=== PATIENT | male | born 1960 | race Caucasian/White ===

== ENCOUNTER 2021-03-13 18:11 | Inpatient (IN) | payer MEDICARE, MEDICAID, SELFPAY ==
[2021-03-13] VITALS (10 sets, daily range): BP systolic 117–151; BP diastolic 72–84; PULSE 74–97; RESP 16–22; TEMP 36.1–36.8; O2SAT 90–99; BMI 23.6
--- NOTE | ~2021-03-13 | XR_ITS ---
XR chest 2V DATE: 03/13/2021 18:46 INDICATION: Shortness of breath. Midsternal chest pain. History of COPD and myocardial infarction. TECHNIQUE: AP and lateral views COMPARISON: None FINDINGS: Bilateral hyperinflation consistent with COPD. No pulmonary infiltrate or consolidation, pu lmonary vascular congestion or pneumothorax is evident. Pleural calcification, suggesting prior asbestos exposure. Diffuse osteopenia. There is moderate anterior wedging and loss of height of a mid to lower thoracic vertebral body. IMPRESSION: COPD Pleural calcifications suggesting prior asbestos exposure Reviewed, dictated and finalized at location A.
--- NOTE | 2021-03-13 18:23 | ECG_ITS ---
Measurements Intervals [place] Rate: 95 P: 64 AK: 138 QRS: 57 QRSD: 104 T: 70 QT: 382 QTc: 480 Interpretive Statements SINUS RHYTHM NORMAL ECG Electronically Signed On 03-13-2021 20:44:26 CDT by Aung Chin D.O.
[2021-03-13 18:48] LABS: Basophils Absolute Auto 0.1 K/mm3 (0.0-0.1); Basophils Percent Auto 0.4 % (0.2-1.2); Eosinophils Absolute Auto 0.1 K/mm3 (0-0.3); Eosinophils Percent Auto 0.4 % (0-4.4); Hematocrit 36.8 % (42.0-52.0); Hemoglobin 11.7 g/dL (14.0-18.0); Immature Granulocyte Absolute 0.14 K/mm3 (0.00-0.031); Lymphocytes Absolute Auto 1.42 K/mm3 (0.9-3.2); Lymphocytes Percent Auto 10.6 % (18.3-44.2); Mean Corpuscular HGB Conc 31.8 g/dl (32-36); Mean Corpuscular Hemoglobin 31.5 pg (26-34); Mean Corpuscular Volume 98.9 fl (80-100); Mean Platelet Volume 8.9 fl (7.4-10.4); Monocytes Absolute Auto 0.6 K/mm3 (0.1-0.6); Monocytes Percent Auto 4.3 % (2.6-8.5); Neutrophils Absolute Auto 11.1 K/mm3 (1.3-6.7); Neutrophils Percent Auto 83.3 % (45.5-73.1); Platelet Count Result 384 k/mm3 (150-375); Red Blood Count 3.72 M/mm3 (4.6-6.20); Red Cell Distribution Width 17.5 % (11.5-14.5); White Blood Count 13.4 K/mm3 (4.5-10.0)
[2021-03-13 19:00] LABS: INR 0.9; Prothrombin Time 11.8 Seconds (11.1-14.7)
[2021-03-13 19:01] LABS: Anion Gap 15 mmol/L (8-16); Blood Urea Nitrogen 17 mg/dL (9-20); Carbon Dioxide 20 mmol/L (22-30); Chloride 103 mmol/L (98-107); Estimated CRCL calculation 81 ml/min; Estimated Glomerular Filt Rate > 60; Glucose 115 mg/dL (65-110); Partial Thromboplastin Time 25.7 SECONDS (22.3-36.8); Potassium 3.7 mmol/L (3.4-5.0); Sodium 138 mmol/L (137-145)
[2021-03-13 19:09] LABS: NT Pro B Type Natriuretic Pept 97 pg/mL (5-100)
[2021-03-13 19:21] LABS: Troponin I 0.373 ng/mL (0.000-0.034)
--- NOTE | 2021-03-13 19:24 | PC.NURSE ---
Checked on pt. pt resting with easy, even, nonlabored resps. currently on 2L O2 per NC. When awoken by this RN and asked how he was doing, pt stated Terrible, I can't breathe. Pt appears to be in no acute distress. Remains on monitor. call light in reach.
--- NOTE | 2021-03-13 20:40 | PM.IMHP ---
H&P: HPI History of Present Illness Date/Time: 03/13/21 20:40 Chief Complaint: CHEST PAIN. Narrative: THIS IS A 60-YEAR-OLD MALE WITH PAST MEDICAL HISTORY SIGNIFICANT FOR COPD/EMPHYSEMA WHO IS A CURRENT DAILY SMOKER OF 1 PACK OF CIGARETTES HE IS FROM [place] AND IS IN TRANSIT THROUGH TOWN IN HIS TRUCK PULLED TO THE SIDE OF THE ROAD ON A REST AREA AND CALLED EMS AND WAS BROUGHT TO THE EMERGENCY ROOM DUE TO ACUTE CHEST PAIN STATES THAT HE HAD A SIMILAR EPISODE THAT REQUIRED STAY AT HOSPITAL IN [place] HAD CARDIAC CATHETERIZATION BUT NO STENT PLACED. RATES HIS PAIN AT 8/10 RADIATING TO THE SHOULDER AND ARM ON THE LEFT SIDE PATIENT WAS DRIVING AT THE TIME THIS HAPPENED HAD INVOLUNTARY SPHINCTER RELAXATION WELL. DENIES ANY NAUSEA OR VOMITING NO DIAPHORESIS, LIGHTHEADEDNESS ,DIZZINESS, LEG SWELLING, FEVERS, RIGORS OR CHILLS. HE HAS A CHRONIC COUGH PRODUCTIVE OF SCANTY SPUTUM OF YELLOWISH TO GREENISH WITH NO CHANGES LATELY. PRELIMINARY WORKUP WAS SIGNIFICANT FOR SLIGHT ELEVATION OF TROPONINS AN EKG WAS NOT SIGNIFICANT FOR ST SEGMENT OR T WAVE CHANGES. A CHEST X-RAY SHOW CALCIFICATIONS FROM ON PRESUMABLY ASBESTOS EXPOSURE. PATIENT HAS BEEN PLACED IN OBSERVATION STATUS. Review of Systems Review of Systems: CHEST PAIN Constitutional: Constitutional: Denies chills, Denies fatigue, Denies fever(s) and Denies weakness Eyes: Eyes: Denies change in vision ENT: Denies dysphagia, Denies vertigo, Denies dizziness, Denies nasal congestion, Denies nasal discharge, Denies nasal obstruction and Denies odynophagia Cardiovascular: Cardiovascular: Reports chest pain, Reports chest pain at rest, Denies lightheadedness, Reports radiating jaw, neck or arm pain, Denies palpitations, Denies dyspnea and Denies orthopnea Respiratory: Respiratory: Denies change in phlegm color, Reports cough and Denies excessive phlegm production Gastrointestinal: Gastrointestinal: Denies constipation, Denies dyspepsia, Denies diarrhea, Denies nausea and Denies vomiting Genitourinary: Genitourinary: Reports no additional male genitourinary complaints Musculoskeletal: Musculoskeletal: Reports no additional musculoskeletal complaints Integumentary/Breasts: Skin/Breast: Reports system reviewed and no additional complaints, except as docu Neurologic: Reports system reviewed and no additional complaints, except as documented Psychiatric: Psychiatric: Reports no additional psychiatric complaints Endocrine: Endocrine: Reports no additional endocrine complaints Hematologic/Lymphatic: Hematologic/Lymphatic: Reports no additional hematologic/lymphatic complaints Allergic/Immunologic: Allergic/Immunologic: Reports no additional allergic/immunologic complaints [facility] Social History Social History Gender identity (if verbalized by the patient): Male Meds Home Medications and Allergies Allergies Allergy/AdvReac Type Severity Reaction Status Date / Time No Known Allergies Allergy Verified 03/13/21 18:25 Vital Signs Vital Signs - 24 hr 03/13/21 18:12 03/13/21 18:25 03/13/21 18:53 Temperature 98.2 F Pulse Rate 97 93 Respiratory Rate 22 H 20 Blood Pressure 123/79 124/80 Pulse Oximetry 90 94 96 03/13/21 19:26 03/13/21 19:32 Temperature 97.0 F L Pulse Rate 95 94 Respiratory Rate 20 Blood Pressure 119/83 Pulse Oximetry 96 Exam Narrative: LAYING IN RNEY Const: General: cooperative, comfortable, no acute distress, well developed, alert, awake and other (WELL-APPEARING) Nutritional Appearance: average body habitus Orientation/consciousness: patient oriented x3 HENMT: Head: normal to inspection, normocephalic and atraumatic Ears: hearing grossly normal bilaterally General nose exam: Normal external nose present Face and sinus: normal facial exam Eyes: General: appearance normal, both eyes and all related structures Alignment and Position: alignment normal Sclera: sclerae normal Pupils: Equal, round and reactive pupils present
--- NOTE | 2021-03-13 21:21 | ED.SOB ---
HPI - SOB/Dyspnea General Chief Complaint: Shortness of Breath/Dyspnea Stated Complaint: 4 Time Seen by Provider: 03/13/21 18:39 Source: patient Mode of arrival: EMS Limitations: no limitations History of Present Illness HPI Narrative: 60-year-old male History of coronary artery disease Patient is from [place] and was traveling through the area in his truck He said yesterday he had some relatively mild substernal chest discomfort But tonight he abruptly had much more severe sharp or substernal pain which was accompanied by shortness of breath and some diaphoresis and was significant enough that it may have contributed to some fecal incontinence EMS gave aspirin and oxygen and he is feeling better now He notes that he does continue to smoke, and is not taking any aspirin blood pressure medication or cholesterol medication although he used to He also has a history of COPD Related Data Allergies Allergy/AdvReac Type Severity Reaction Status Date / Time No Known Allergies Allergy Verified 03/13/21 18:25 Review of Systems Review of Systems: All systems reviewed & are unremarkable except as noted in HPI and below Constitutional: Constitutional: Reports no additional constitutional complaints, Denies chills, Reports fatigue, Denies fever(s), Denies headache(s) and Reports weakness Eyes: Eyes: Reports no additional eye complaints and Denies change in vision ENT: Denies headache(s) and Denies sore throat Cardiovascular: Cardiovascular: Reports chest pain and Denies dyspnea Respiratory: Respiratory: Reports chest congestion, Reports cough, Reports dyspnea and Reports wheezing Gastrointestinal: Gastrointestinal: Denies abdominal pain, Denies diarrhea and Denies vomiting Genitourinary: Genitourinary: Denies dysuria and Denies urinary frequency Musculoskeletal: Musculoskeletal: Denies deformity, Denies arthralgias, Denies joint swelling and Denies numbness Integumentary/Breasts: Skin/Breast: Denies rash and Denies wounds Neurologic: Denies headache(s), Denies focal weakness and Denies numbness Psychiatric: Psychiatric: Reports no additional psychiatric complaints Endocrine: Endocrine: Reports no additional endocrine complaints Hematologic/Lymphatic: Hematologic/Lymphatic: Reports no additional hematologic/lymphatic complaints Allergic/Immunologic: Allergic/Immunologic: Reports no additional allergic/immunologic complaints PMFSH Social History Social History Gender identity (if verbalized by the patient): Male Exam Const: General: cooperative and no acute distress Orientation/consciousness: patient oriented x3 (alert) HENMT: Head: normal to inspection, normocephalic and atraumatic Ears: external ears normal General nose exam: no epistaxis Eyes: Conjunctivae: conjunctivae normal EOM: EOMs intact bilaterally Neck: Neck: normal visual inspection, supple and no JVD Resp: Effort & Inspection: normal respiratory effort and not labored Auscultation: no rales, rhonchi, wheezes and other (BS =) Cardio: Rate: regular rate Rhythm: regular rhythm Heart sounds: no murmurs GI: GI Palp: Yes Soft to palpation and No Tenderness to palpation present (GI) Skin: General skin exam: normal color and no rashes or lesions noted Neuro: General: patient oriented x3 (alert) and moves all extremities Speech: normal speech Extrem: General: normal to inspection and no pedal edema Psych: Affect: normal affect Course Course Emergency Course: Patient is high risk because of his known coronary disease and not taking any meds, history is suggestive, EKG is normal, initial troponin is 10 times upper bound of normal, received aspirin Lovenox and discussed with Dr. Vazquez and Dr. Campos for admissions Vital Signs Vital signs: Vital Signs Temperature 36.8 C 03/13/21 18:12 Pulse Rate 97 03/13/21 18:12 Respiratory Rate 22 H 03/13/21 18:12 Blood Pressure 123/79 03/13/21 18:12 Pulse Oximetry 90 03/13
[2021-03-13] MEDS: NITROGLYCERIN OINTMENT 1 INCH DOSE TRANSDERM (21:46)
[2021-03-13] MEDS: ENOXAPARIN 80 MG/0.8 ML SYRINGE SUB-Q (21:47)
[2021-03-13 22:16] LABS: Troponin I 0.436 ng/mL (0.000-0.034)
[2021-03-13] MEDS: IPRATROPIUM BR 0.02% INH SOLN 0.5 MG/2.5 ML VIAL INHALATION (22:34)
[2021-03-13] MEDS: ALBUTEROL SULFATE NEB 2.5 MG/0.5 ML INH 5 MG INHALATION (22:34)
[2021-03-13] MEDS: MORPHINE SULFATE (*CRX) 2 MG/ML INJ 1 MG IV PUSH (22:58)
--- NOTE | 2021-03-13 23:19 | PC.NURSE ---
Pt given dose of IVP morphine prior to transport to room 205.
--- NOTE | 2021-03-13 23:29 | PC.NURSE ---
This patient, David Madera, was admitted to IMU Room 205-01. Patient/family oriented to hospital policies and general routines including ID bracelet, bed and alarms, visiting hours, pain management, procedures, bathroom and other care routines, personal items, smoking policy, room service/diet, and visiting hours. Information on how to activate the Rapid Response Team has been discussed. Patient/Family are encouraged to report perceived risks to care and to ask questions if they do not understand what they are told or what they should do.
[2021-03-13] MEDS: NITROGLYCERIN SL 0.4 MG TABLET SUBLINGUAL ×3 (23:45→23:56)
[2021-03-14] VITALS (22 sets, daily range): BP systolic 130–154; BP diastolic 70–90; PULSE 75–106; RESP 14–24; TEMP 36.3–37.1; O2SAT 92–99
--- NOTE | 2021-03-14 | ECHO_ITS ---
Patient Info Name: David Madera Age: 60 years : 1960 Gender: Male Ht: 71 in Wt: 168 lbs BSA: 1.96 m2 HR: 92 bpm BP: 140 / 77 mmHg Technical Quality: Fair Exam Date: 03/14/2021 1:27 PM Exam Location: [facility] Patient Status: Inpatient Admit Date: 03/13/2021 Staff Ordering Physician: Blane Schroeder MD Eeg Technologist: Nicole Roy RDCS Attending Provider: Lou Vazquez MD Exam Type: CA echo dop color flow w con Study Info Complete two-dimensional, color flow and Doppler transthoracic echocardiogram is performed with contrast to opacify the left ventricle and to improve the deliniation of the left ventricle endocardial borders. Contrast/Agitated Saline Contrast/Ag. Saline: Definity Amount: 4.00 ml Summary 1. Left ventricular chamber dimension is normal. 2. Left ventricular systolic function is normal, estimated at 55-60%. 3. The left ventricular diastolic function is normal. 4. Normal left venticular systolic function with no regional wall motion abnormalities. 5. There is mildly increased left ventricular wall thickness. 6. The mitral valve has myxomatous leaflets and anterior prolapse. 7. There is moderate mitral valve regurgitation. Left Ventricle Left ventricular chamber dimension is normal. Left ventricular systolic function is normal, estimated at 55-60%. There is mildly increased left ventricular wall thickness. The left ventricular diastolic function is normal. Normal left venticular systolic function with no regional wall motion abnormalities. Right Ventricle Right ventricular chamber dimension is normal. Right ventricular systolic function is normal. Left Atria Left atrial chamber dimension is mildly enlarged. Right Atria Right atrial chamber dimension is normal. Aortic Valve The aortic valve is trileaflet. There is no aortic valve sclerosis. There is no aortic valve stenosis. There is no aortic valve regurgitation. Pulmonic Valve The pulmonic valve is normal. There is no pulmonic valve stenosis. There is no pulmonic regurgitation. Mitral Valve The mitral valve has anterior prolapse and myxomatous leaflets. There is no mitral valve stenosis. There is moderate mitral valve regurgitation. Tricuspid Valve The tricuspid valve leaflets are normal. There is no significant tricuspid valve stenosis. There is trace tricuspid valve regurgitation. Pericardium/Pleural The pericardium appears normal. There is no pericardial effusion. Inferior Vena Cava Normal inferior vena cava with >50% collapse upon inspiration consistent with normal right atrial pressure, 5 mmHg. Aorta The aortic root size at the sinus of Valsalva is normal. The prox ascending aorta size is normal. Left Ventricular Outflow Tract Name Value Normal LVOT 2D LVOT Diameter 2.46 cm LVOT Doppler LVOT Peak Gradient 3 mmHg LVOT Mean Gradient 1 mmHg LVOT VTI 18.91 cm LVOT VTI/AV VTI Ratio 0.63 LVOT Stroke Volume
[2021-03-14] MEDS: MORPHINE SULFATE (*CRX) 2 MG/ML INJ 1 MG IV PUSH (00:25)
--- NOTE | 2021-03-14 01:14 | ECG_ITS ---
Measurements Intervals [place] Rate: 90 P: 68 AL: 137 QRS: 58 QRSD: 107 T: 72 QT: 394 QTc: 484 Interpretive Statements SINUS RHYTHM ATRIAL PREMATURE COMPLEXES BASELINE ARTIFACT- II, III, AVR, AVL, AVF BORDERLINE ECG Electronically Signed On 03-14-2021 10:08:15 CDT by Aung Chin D.O.
--- NOTE | 2021-03-14 01:15 | PCDIET ---
This patient, David Madera, was received from [facility]- on 03/14/21 at 0115. REPORT RECEIVED FROM VELASQUEZ PATIÑO. Patient/family oriented to unit policies and routines
[2021-03-14 01:24] LABS: Troponin I 0.382 ng/mL (0.000-0.034)
[2021-03-14] MEDS: NITROGLYCERIN/D5W 200 MCG/ML 50 MG/250 ML BTL IV CONT (02:05)
--- NOTE | 2021-03-14 02:23 | PCRCNOTE ---
Window of time for administration has passed. See next scheduled administration.
--- NOTE | 2021-03-14 02:25 | PC.NURSE ---
I received this patient from the ER having 8/10 chest pain. NTG SL X 3 given per protocol with only minor alleviation of pain. Dr Campos notified. Orders for additional 1mg of Morphine and call Dr. Vazquez to transfer the patient to the ICU for a Ntg drip. Spoke with Dr Vazquez and she agreed to call Dr Cardenas to transfer the patient. After the additional Morphine, chest pain is still 7/10 with radiation to the rt arm and jaw with associated nausea and diaphoresis. Patient transferred to ICU-4, report given to Josette PATIÑO.
[2021-03-14] MEDS: ALBUTEROL SULFATE NEB 2.5 MG/0.5 ML INH 5 MG INHALATION ×4 (02:43→21:06)
[2021-03-14] MEDS: IPRATROPIUM BR 0.02% INH SOLN 0.5 MG/2.5 ML VIAL INHALATION ×4 (02:43→21:06)
[2021-03-14] MEDS: LACTATED RINGERS 1,000 ML 100 ML IV CONT (03:12)
[2021-03-14] MEDS: LORazepam INJ (*CRX) 2 MG/ML VIAL 1 MG IV PUSH ×2 (03:13→20:59)
[2021-03-14] MEDS: chlordiazePOXIDE (*CRX) 25 MG CAPSULE 50 MG PO ×3 (03:13→17:06)
[2021-03-14 07:53] LABS: Troponin I 0.268 ng/mL (0.000-0.034)
--- NOTE | 2021-03-14 09:50 | WPDCNINT ---
Assessment and Plan Assessment and plan (1) Non-ST elevation AR (NSTEMI): Code(s): I21.4 - Non-ST elevation (NSTEMI) myocardial infarction Status: Acute Assessment and Plan: Patient with chest pain, shortness of breath, diaphoresis, -no ST-T changes on EKG -troponins elevated with have plateaued and decreased -currently chest pain-free -patient on nitroglycerin infusion, will switch to nitro paste - Cardiology evaluate the patient, plan for cardiac catheterization on Tuesday10/11/2020 -will order echocardiogram -discussed with Cardiology, will discontinue nitroglycerin infusion and place patient on nitro patch (2) Tobacco dependence: Code(s): F17.200 - Nicotine dependence, unspecified, uncomplicated Status: Acute Assessment and Plan: Patient states he smokes 1 to 1/2 packet per day for about 45 years. -control patient on cessation of smoking, patient says he has has not thought about it as yet -I did discuss with him the affects of cigarette smoking on the heart especially that he has come in with chest pain and NSTEMI. I also discussed with him regarding COPD which could worsen if he continues to smoke, He said he will think about quitting (3) Emphysema/COPD: Code(s): J43.9 - Emphysema, unspecified Status: Acute Assessment and Plan: History of emphysema/COPD as seen on chest x-ray as well as from his history -continue bronchodilators (4) Alcohol use: Code(s): Z72.89 - Other problems related to lifestyle Status: Acute Assessment and Plan: Patient states he has drinks about half a pintt of whiskey daily -counseled patient on cessation of alcohol use and getting him to AA or other groups Additional Plan Discussed with patient updated with his condition and plan of care. He states he is hungry, I did discuss with him that once Cardiology evaluates him he will be able to eat. Code status: Full code Critical care time spent: 39 minutes This dictation may have been done utilizing a voice recognition system. Attempts have been made to correct errors. However, there may be uncorrected grammatical, spelling, and recognition errors present. Due to a high probability of clinically significant, life threatening deterioration, the patient required my highest level of preparedness to intervene emergently and I personally spent this critical care time directly and personally managing the patient. This critical care time included obtaining a history; examining the patient; pulse oximetry; ordering and review of studies; arranging urgent treatment with development of a management plan; evaluation of patient's response to treatment; frequent reassessment; and discussions with other providers. It was exclusive of separately billable procedures and treating other patients and teaching time. 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 EKG did not show any ST-T changes, troponins mildly elevated and trending down. Patient was given morphine and sublingual nitroglycerin, chest pain remained 8/10 in intensity and patient was started on nitroglycerin infusion and transferred to the ICU for further management. Patient seen and examined this morning, remains on nitroglycerin infusion, states his chest pain has almost resolved, which he smokes 1 to 1/2 packet of cigarettes per day and drinks about half a pint of whiskey daily. Patient denies any illicit drug use. At this time he does not complain of
--- NOTE | 2021-03-14 10:59 | PM.CNCAR ---
Assessment and Plan Additional Plan NSTEMI, moderate to sever MR per examination, HTN, Plan Cont LMWH, TTE to assess MV disease, ASA, statin, change nitroglycerin to oral therapy Imdur 60 mg daily, start metoprolol 25 mg BID. I discussed withpatient need for LHC but he refused. He wanted more time to think about it. History of Present Illness History of Present Illness Consult date/time: 03/14/21 10:59 Reason For Visit: NSTEMI Narrative: Patient presented with acute chest pain that started yesterday, acute sever retrosternal, pressure like, non radiating, associated with SOB. Today his pain has resolved and SOB improved. He had similar episode several months ago and admitted to hospital [place] and was discharged with no intervention. Review of Systems Review of Systems: All systems reviewed & are unremarkable except as noted in HPI and below PMFSH Social History Social History Smoking packs per day: 1 Smoking cigarettes per day: 20.0 Years smoked: 45 Smoking pack-years: 45.00 Smoking status: Heavy tobacco smoker Tobacco type: cigarettes Alcohol intake: current Drinks per week: 5 Substance use: never Gender identity (if verbalized by the patient): Male Spiritual care concerns: No Meds Home Medications and Allergies Home Medications Medication Instructions Recorded Confirmed Type trazodone 100 mg PO HS PRN 03/13/21 03/14/21 History Allergies Allergy/AdvReac Type Severity Reaction Status Date / Time Penicillins Allergy Unknown Swelling Verified 03/13/21 22:57 Vital Signs Vital Signs - 24 hr 03/13/21 18:12 03/13/21 18:25 03/13/21 18:53 Temperature 36.8 C Pulse Rate 97 93 Respiratory Rate 22 H 20 Blood Pressure 123/79 124/80 Pulse Oximetry 90 94 96 03/13/21 19:26 03/13/21 19:32 03/13/21 21:38 Temperature 36.1 C L Pulse Rate 95 94 97 Respiratory Rate 20 20 Blood Pressure 119/83 117/72 Pulse Oximetry 96 95 03/13/21 22:36 03/13/21 22:39 03/13/21 22:41 Temperature 36.3 C L Pulse Rate 74 88 Respiratory Rate 16 16 20 Blood Pressure 138/84 Pulse Oximetry 99 99 03/13/21 23:24 03/14/21 00:00 03/14/21 02:00 Temperature 36.4 C L 37.0 C 37.0 C Pulse Rate 95 95 95 Respiratory Rate 22 H 24 H Blood Pressure 151/82 H 143/90 H 147/88 H Pulse Oximetry 99 99 94 03/14/21 02:43 03/14/21 02:52 03/14/21 04:00 Temperature Pulse Rate 92 86 83 Respiratory Rate 20 20 16 Blood Pressure 142/70 H Pulse Oximetry 94 03/14/21 06:00 03/14/21 06:47 03/14/21 06:51 Temperature Pulse Rate 83 95 83 Respiratory Rate 20 Blood Pressure 154/77 H Pulse Oximetry 96 03/14/21 07:57 03/14/21 08:00 03/14/21 08:08 Temperature Pulse Rate 78 80 75 Respiratory Rate 20 22 H Blood Pressure Pulse Oximetry 94 94 Exam Const: General: comfortable and no acute distress Other: Able to lie flat HENMT: General nose exam: Normal nares present and no epistaxis Mouth: Yes moist mucous membranes Eyes: Sclera: sclerae normal Pupils: Equal, round and reactive pupils present Neck: Neck: supple and no JVD Carotids: no bruits Resp: Auscultation: clear to auscultation bilaterally and lung sounds not diminished Other: No chest wall tenderness Cardio: Rate: regular rate Rhythm: regular rhythm Heart sounds: no gallops, Murmur heart sound present (at M area) systolic and no rubs GI: GI Palp: Yes Soft to palpation and No Tenderness to palpation present (GI) Auscultation: normal bowel sounds Skin: General skin exam: normal color, rashes and/or lesions noted and no erythema Other: Warm Neuro: Cranial nerves: Yes Equal, round and reactive pupils present Speech: normal speech Other: No obvious focal deficit or facial asymmetry Extrem: General: no edema Other: Normal capillary refills Intact distal pulses. Results Labs and Meds Result diagrams: 03/13/21 18:37 03/13/21 18:37 Lab results: Cardiac Enzymes
[2021-03-14] MEDS: ASPIRIN 81 MG CHEWABLE TABLET PO (11:18)
[2021-03-14] MEDS: FAMOTIDINE 20 MG/2 ML VIAL IV PUSH ×2 (11:18→20:53)
[2021-03-14] MEDS: ENOXAPARIN 80 MG/0.8 ML SYRINGE SUB-Q ×2 (11:19→20:53)
[2021-03-14] MEDS: ISOSORBIDE MONONITRATE 60 MG TAB.ER.24H PO (11:40)
[2021-03-14] MEDS: NICOTINE (*PBKC) 14 MG PATCH 1 PATCH TRANSDERM (13:12)
[2021-03-14 15:35] LABS: Amphetamine Screen Urine Negative (Negative); Barbiturate Screen Urine Negative (Negative); Benzodiazepines Screen Urine Positive (Negative); Cannabinoid Screen Urine Negative (Negative); Cocaine Screen Urine Negative (Negative); Methadone Screen Urine Negative (Negative); Opiate Screen Urine Positive (Negative); Phencyclidine Screen Urine Negative (Negative)
[2021-03-15] VITALS (24 sets, daily range): BP systolic 103–143; BP diastolic 62–79; PULSE 74–109; RESP 14–24; TEMP 36.3–37; O2SAT 92–99
[2021-03-15] MEDS: chlordiazePOXIDE (*CRX) 25 MG CAPSULE 50 MG PO ×4 (01:30→23:10)
[2021-03-15] MEDS: IPRATROPIUM BR 0.02% INH SOLN 0.5 MG/2.5 ML VIAL INHALATION ×4 (02:59→23:29)
[2021-03-15] MEDS: ALBUTEROL SULFATE NEB 2.5 MG/0.5 ML INH 5 MG INHALATION ×4 (02:59→23:29)
--- NOTE | 2021-03-15 07:30 | PM.IMPN ---
Progress Note: A&P Assessment and Plan (1) Non-ST elevation [place] (NSTEMI): Code(s): I21.4 - Non-ST elevation (NSTEMI) myocardial infarction Status: Acute Assessment and Plan: Patient with chest pain, shortness of breath, diaphoresis. -no ST-T changes on EKG -troponins elevated with have plateaued and decreased now. -currently chest pain-free -he was requiring nitroglycerin infusion which has been stopped now and currently on nitro patch. Continue aspirin and therapeutic Lovenox. I will add Lipitor. He is not on any beta acacia at this time. - Cardiology recommendations appreciated. He is planned for left heart cardiac catheterization and SMILEY to evaluate mitral valve. He had echocardiogram done which showed moderate mitral valve regurgitation with myxomatous leaflet and anterior prolapse. Ejection fraction was 55-60%. (2) Tobacco dependence: Code(s): F17.200 - Nicotine dependence, unspecified, uncomplicated Status: Acute Assessment and Plan: Patient states he smokes 1 to 1/2 packet per day for about 45 years. He was counseled about quitting smoking. (3) Emphysema/COPD: Code(s): J43.9 - Emphysema, unspecified Status: Acute Assessment and Plan: History of emphysema/COPD as seen on chest x-ray as well as from his history. Currently not wheezing. -continue bronchodilators (4) Alcohol use: Code(s): Z72.89 - Other problems related to lifestyle Status: Acute Assessment and Plan: Patient states he has drinks about half a pintt of whiskey daily -counseled patient on cessation of alcohol use and getting him to AA or other groups. Follow for any withdrawal sign and put him on CIWA protocol if he does exhibit any withdrawal signs. He is currently on Librium but will wean the dose to 25 mg every 6 are today. Continue further wean based on his clinical status. Thiamine and folate. Additional Plan DVT prophylaxis with therapeutic Lovenox GI prophylaxis not indicated. He will be NPO overnight for his cardiac catheterization and smiley. Code status: Full code Subjective Date/time seen: 03/15/21 07:30 He denied have any further chest pain. He denied have any shortness of breath fever and chills. He is scheduled to have left heart catheterization and SMILEY in the a.m.. He was on room air at the time my evaluation. Review of Systems Review of Systems: A comprehensive review of systems has been reviewed with the patient and most of the symptoms are negative except the one's mentioned above in HPI. 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 Psychiatric cooperative appropriate mood and affect Extremities no edema Objective Data Vital Signs Vital Signs: Vital Signs - 24 hr 03/14/21 07:57 03/14/21 08:00 03/14/21 08:08 Temperature 36.3 C L Pulse Rate 78 89 75 Respiratory Rate 20 22 H 22 H Blood Pressure 147/84 H Pulse Oximetry 94 93 94 03/14/21 10:00 03/14/21 12:00 03/14/21 14:00 Temperature 36.6 C Pulse Rate 100 96 83 Respiratory Rate 22 H 24 H 22 H Blood Pressure 146/88 H 140/77 132/86 Pulse Oximetry 96 99 99 03/14/21 14:25 03/14/21 14:34 03/14/21 16:00 Temperature Pulse Rate 87 84 89 Respiratory Rate 20 20 22 H Blood Pressure 142/82 H Pulse Oximetry 97 97 99 03/14/21 18:00 03/14/21 20:00 03/14/21 21:06 Temperature 37.1 C Pulse Rate 94 83 82 Respiratory Rate 24 H 14 Blood Pressure 130/84 Pulse Oximetry 95 03/14/21 21:20 03/14/21 22:00 03/15/21 00:00 Temperature Pulse Rate 84 82 81 Respiratory Rate 16 Blood Pressure Pulse Oximetry 99 03/15/21 00:45 03/15/21 02:00 03/15/21 02:59 Temperature 37.0 C Pulse Rate 82 86 87 Respiratory Rate 24 H 14 Blood Pressure 103/64 Pulse Oximetry 9
[2021-03-15] MEDS: ASPIRIN 81 MG CHEWABLE TABLET PO (08:33)
[2021-03-15] MEDS: FAMOTIDINE 20 MG/2 ML VIAL IV PUSH (08:33)
[2021-03-15] MEDS: ENOXAPARIN 80 MG/0.8 ML SYRINGE SUB-Q ×2 (08:33→20:01)
[2021-03-15] MEDS: ISOSORBIDE MONONITRATE 60 MG TAB.ER.24H PO (08:34)
[2021-03-15] MEDS: NICOTINE (*PBKC) 14 MG PATCH 1 PATCH TRANSDERM (08:34)
--- NOTE | 2021-03-15 08:37 | PM.PNCARD ---
Progress Note: A&P Additional Plan NSTEMI, moderate to sever MR per examination, HTN, Plan Cont LMWH, ROSA and LHC (ROSA first to evaluate severity of MR) in AM, ASA, statin, Imdur 60 mg daily, metoprolol 25 mg BID. Subjective Date/time seen: 03/15/21 08:37 Interval history: no acute events no chest pain or SOB Review of Systems Review of Systems: All systems reviewed & are unremarkable except as noted in HPI and below Exam Const: General: comfortable and no acute distress Other: Able to lie flat HENMT: General nose exam: Normal nares present and no epistaxis Mouth: Yes moist mucous membranes Eyes: Sclera: sclerae normal Pupils: Equal, round and reactive pupils present Neck: Neck: supple and no JVD Carotids: no bruits Resp: Auscultation: clear to auscultation bilaterally and lung sounds not diminished Other: No chest wall tenderness Cardio: Rate: regular rate Rhythm: regular rhythm Heart sounds: no gallops, Murmur heart sound present (systolic murmur at M area ) systolic and no rubs GI: GI Palp: Yes Soft to palpation and No Tenderness to palpation present (GI) Auscultation: normal bowel sounds Skin: General skin exam: normal color, rashes and/or lesions noted and no erythema Other: Warm Neuro: Cranial nerves: Yes Equal, round and reactive pupils present Speech: normal speech Other: No obvious focal deficit or facial asymmetry Extrem: General: no edema Other: Normal capillary refills Intact distal pulses. Objective Data Vital Signs Vital Signs: Vital Signs - 24 hr 03/14/21 10:00 03/14/21 12:00 03/14/21 14:00 Temperature 36.6 C Pulse Rate 100 96 83 Respiratory Rate 22 H 24 H 22 H Blood Pressure 146/88 H 140/77 132/86 Pulse Oximetry 96 99 99 03/14/21 14:25 03/14/21 14:34 03/14/21 16:00 Temperature Pulse Rate 87 84 89 Respiratory Rate 20 20 22 H Blood Pressure 142/82 H Pulse Oximetry 97 97 99 03/14/21 18:00 03/14/21 20:00 03/14/21 21:06 Temperature 37.1 C Pulse Rate 94 83 82 Respiratory Rate 24 H 14 Blood Pressure 130/84 Pulse Oximetry 95 03/14/21 21:20 03/14/21 22:00 03/15/21 00:00 Temperature Pulse Rate 84 82 81 Respiratory Rate 16 Blood Pressure Pulse Oximetry 99 03/15/21 00:45 03/15/21 02:00 03/15/21 02:59 Temperature 37.0 C Pulse Rate 82 86 87 Respiratory Rate 24 H 14 Blood Pressure 103/64 Pulse Oximetry 94 03/15/21 04:00 03/15/21 06:00 Temperature Pulse Rate 83 84 Respiratory Rate 20 Blood Pressure 119/73 Pulse Oximetry 94 Intake/Output Intake/Output: Intake & Output 03/12/21 03/13/21 03/14/21 03/15/21 23:59 23:59 23:59 23:59 Intake Total 2280 Output Total 1200 725 Balance 6450 -285 Meds/Results Medications: Active Medications Generic Name Dose Route Start Last Admin Trade Name Freq PRN Reason Stop Dose Admin Acetaminophen 650 mg 03/13/21 21:18 Acetaminophen 325 Mg Tablet PO Q4H PRN Mild Pain (1-3) or Fever Albuterol 5 mg 03/14/21 02:00 03/15/21 07:57 Albuterol Sulfate Neb 2.5 Mg/0.5 Ml Inh INHALATION 5 mg Q6HRT JOJO Administration Aspirin 81 mg 03/14/21 08:00 03/15/21 08:33 Aspirin 81 Mg Chewable Tablet PO 81 mg DAILY@0800 JOJO Administration Chlordiazepoxide HCl 50 mg 03/14/21 06:00 03/15/21 06:23 Chlordiazepoxide (*Crx) 25 Mg Capsule PO 50 mg Q6HR JOJO Administration Enoxaparin Sodium 80 mg 03/14/21 09:00 03/15/21 08:33 Enoxaparin 80 Mg/0.8 Ml Syringe SUB-Q 80 mg Q12H JOJO Administration Famotidine 20 mg 03/14/21 09:00 03/15/21 08:33 Famotidine 20 Mg/2 Ml Vial IV PUSH 20 mg Q12HR JOJO Administration Ipratropium [place] 0.5 mg 03/14/21 02:00 03/15/21 07:57 Ipratropium Br 0.02% Inh Soln 0.5 Mg/2.5 Ml Vial INHALATION 0.5 mg Q6HRT JOJO Administration Isosorbide Mononitrate 60 mg 03/14/21 11:15 03/15/21 08:34 Isosorbide Mononitrate 60 Mg Tab.Er.24h PO 60 mg QAM JOJO Administration Lorazepam
--- NOTE | 2021-03-15 11:13 | PC.NURSE ---
This patient, David Madera, was transferred to [[id number] [id number] ] on 03/15/21 at 1110. Personal belongings sent with patient included phone, change and papers, clothes. Report given to [ [email or web address] flores rn]. Appropriate documentation sent with patient.
[2021-03-15] MEDS: LORazepam INJ (*CRX) 2 MG/ML VIAL 1 MG IV PUSH ×3 (14:09→21:14)
[2021-03-15] MEDS: chlordiazePOXIDE (*CRX) 25 MG CAPSULE PO (17:40)
[2021-03-15] MEDS: traZODone HCL 50 MG TABLET 100 MG PO (20:04)
[2021-03-15] MEDS: ACETAMINOPHEN 325 MG TABLET 650 MG PO (20:07)
[2021-03-16] VITALS (25 sets, daily range): BP systolic 108–127; BP diastolic 57–86; PULSE 67–94; RESP 16–22; TEMP 35.7–36.7; O2SAT 96–100
[2021-03-16] MEDS: LORazepam INJ (*CRX) 2 MG/ML VIAL 1 MG IV PUSH ×3 (03:39→21:42)
[2021-03-16 05:58] LABS: Basophils Percent Auto 0.4 % (0.2-1.2); Eosinophils Absolute Auto 0.4 K/mm3 (0-0.3); Eosinophils Percent Auto 5.3 % (0-4.4); Hematocrit 32.2 % (42.0-52.0); Hemoglobin 10.1 g/dL (14.0-18.0); Immature Granulocyte Absolute 0.06 K/mm3 (0.00-0.031); Immature Granulocyte Percent A 0.7 % (0-0.5); Lymphocytes Absolute Auto 1.81 K/mm3 (0.9-3.2); Lymphocytes Percent Auto 22.2 % (18.3-44.2); Mean Corpuscular HGB Conc 31.4 g/dl (32-36); Mean Corpuscular Hemoglobin 31.4 pg (26-34); Mean Platelet Volume 9.9 fl (7.4-10.4); Monocytes Absolute Auto 0.4 K/mm3 (0.1-0.6); Monocytes Percent Auto 5.3 % (2.6-8.5); Neutrophils Absolute Auto 5.4 K/mm3 (1.3-6.7); Neutrophils Percent Auto 66.1 % (45.5-73.1); Platelet Count Result 310 k/mm3 (150-375); Red Blood Count 3.22 M/mm3 (4.6-6.20); Red Cell Distribution Width 17.2 % (11.5-14.5); White Blood Count 8.2 K/mm3 (4.5-10.0)
[2021-03-16 06:07] LABS: INR 0.9; Prothrombin Time 12.3 Seconds (11.1-14.7)
[2021-03-16] MEDS: chlordiazePOXIDE (*CRX) 25 MG CAPSULE 50 MG PO ×3 (06:17→17:16)
[2021-03-16 06:29] LABS: Anion Gap 5 mmol/L (8-16); Blood Urea Nitrogen 13 mg/dL (9-20); Calcium 8.3 mg/dL (8.4-10.2); Carbon Dioxide 29 mmol/L (22-30); Chloride 101 mmol/L (98-107); Estimated CRCL calculation 90 ml/min; Estimated Glomerular Filt Rate > 60; Glucose 93 mg/dL (65-110); Potassium 3.7 mmol/L (3.4-5.0); Sodium 135 mmol/L (137-145)
[2021-03-16] MEDS: ALBUTEROL SULFATE NEB 2.5 MG/0.5 ML INH 5 MG INHALATION ×2 (08:28→20:19)
[2021-03-16] MEDS: IPRATROPIUM BR 0.02% INH SOLN 0.5 MG/2.5 ML VIAL INHALATION ×2 (08:28→20:20)
--- NOTE | 2021-03-16 09:00 | PM.PNCARD ---
Progress Note: A&P Additional Plan 60-year-old man with: Symptoms of chest discomfort intermittently and elevated troponin although a flat elevation not rising and falling as would be expected with ACS. Given his chronic smoking angiography is has appropriately been recommended the patient at this time appears to be agreeable although was making comments during my visit with this morning that he might declined so that he can leave the hospital. Will anticipate proceeding with angiography this afternoon. David Tucker MD [facility] Subjective Date/time seen: Date of service: 03/16/21 09:00 Interval history: Follow-up visit in this 60-year-old man with: Chest pain concerning for unstable myocardial ischemia. Modest flat troponin elevation. Patient has moderate mitral regurgitation by exam and by echo. Saw the patient this morning in anticipation of left heart catheterization which was recommended by my partner seeing him over the weekend. Surprised that the patient's initial response was that he wanted to cancel the procedure so that he could eat and go home. With subsequent discussion he agrees to stay in the hospital for angiography. Exam Const: General: comfortable and no acute distress HENMT: Mouth: Yes moist mucous membranes Eyes: Sclera: sclerae normal Pupils: Equal, round and reactive pupils present Neck: Neck: supple and no JVD Thyroid: thyroid normal Resp: Effort & Inspection: normal respiratory effort Auscultation: clear to auscultation bilaterally Cardio: Rate: regular rate Rhythm: regular rhythm Other: Grade 2/6 holosystolic murmur at the apex compatible with mitral regurgitation GI: GI Palp: Yes Soft to palpation Auscultation: normal bowel sounds Neuro: Cognition (Neuro): normal cognition Extrem: General: normal to inspection Objective Data Vital Signs Vital Signs: Vital Signs - 24 hr 03/15/21 09:58 03/15/21 11:40 03/15/21 12:00 Temperature 36.5 C Pulse Rate 109 H 88 95 Pulse Rate [Apical] Respiratory Rate 18 Blood Pressure 110/74 Pulse Oximetry 99 03/15/21 14:00 03/15/21 14:57 03/15/21 15:05 Temperature Pulse Rate 86 88 87 Pulse Rate [Apical] Respiratory Rate 20 18 Blood Pressure Pulse Oximetry 96 96 03/15/21 16:00 03/15/21 17:37 03/15/21 18:00 Temperature 36.9 C 36.8 C Pulse Rate 96 87 102 H Pulse Rate [Apical] Respiratory Rate 20 18 Blood Pressure 106/62 105/68 Pulse Oximetry 97 97 03/15/21 20:00 03/15/21 20:53 03/15/21 22:00 Temperature 36.5 C Pulse Rate 77 81 Pulse Rate [Apical] 80 Respiratory Rate 20 Blood Pressure 104/65 Pulse Oximetry 98 03/15/21 23:30 03/15/21 23:37 03/15/21 23:39 Temperature 36.4 C Pulse Rate 83 76 98 Pulse Rate [Apical] Respiratory Rate 16 20 18 Blood Pressure 143/79 H Pulse Oximetry 96 03/16/21 00:00 03/16/21 02:00 03/16/21 03:35 Temperature Pulse Rate 81 78 Pulse Rate [Apical] 88 Respiratory Rate Blood Pressure Pulse Oximetry 96 03/16/21 04:00 03/16/21 06:00 03/16/21 08:30 Temperature 36.7 C Pulse Rate 77 79 67 Pulse Rate [Apical] Respiratory Rate 20 20 Blood Pressure 108/57 L Pulse Oximetry 98 97 03/16/21 08:44 Temperature Pulse Rate 76 Pulse Rate [Apical] Respiratory Rate 20 Blood Pressure Pulse Oximetry Intake/Output Intake/Output: Intake & Output 03/13/21 03/14/21 03/15/21 03/16/21 23:59 23:59 23:59 23:59 Intake Total 2280 1750 700 Output Total 1876 023 2989 Balance 1080 1025 -1200 Meds/Results Medications: Active Medications Generic Name Dose Route Start Last Admin Trade Name Freq PRN Reason Stop Dose Admin Acetaminophen 650 mg 03/13/21 21:18 03/15/21 20:07 Acetaminophen 325 Mg Tablet PO 650 mg Q4H PRN Administration Mild Pain (1-3) or Fever Albuterol 5 mg 03/14/21 02:00 03/16/21 08:28 Albuterol Sulfate Neb 2.5 Mg/0.5 Ml Inh INHALATION 5 mg Q6HRT [facility] Administratio
--- NOTE | 2021-03-16 09:02 | WPDMODSED ---
Moderate Sedation Note-Pt Data Patient Data Diagnosis: Intermittent chest pain Troponin elevation Mitral regurgitation Tobacco abuse Present Complaint: Unhappy about being NPO Procedure to be performed/Plan: Coronary angiography Allergies Allergy/AdvReac Type Severity Reaction Status Date / Time Penicillins Allergy Unknown Swelling Verified 03/13/21 22:57 Home Medications Medication Instructions Recorded Confirmed Type trazodone 100 mg PO HS PRN 03/13/21 03/14/21 History Current Medications: Active Medications Acetaminophen (Acetaminophen 325 Mg Tablet) 650 mg PO Q4H PRN PRN Reason: Mild Pain (1-3) or Fever Last Admin: 03/15/21 20:07 Dose: 650 mg Documented by: Albuterol (Albuterol Sulfate Neb 2.5 Mg/0.5 Ml Inh) 5 mg INHALATION Q6HRT [facility] Last Admin: 03/16/21 08:28 Dose: 5 mg Documented by: Aspirin (Aspirin 81 Mg Chewable Tablet) 81 mg PO DAILY@0800 [facility] Last Admin: 03/15/21 08:33 Dose: 81 mg Documented by: Atorvastatin Calcium (Atorvastatin 40 Mg Tablet) 80 mg PO DAILY [facility] Chlordiazepoxide HCl (Chlordiazepoxide (*Crx) 25 Mg Capsule) 50 mg PO Q6HR [facility] Last Admin: 03/16/21 06:17 Dose: 50 mg Documented by: Enoxaparin Sodium (Enoxaparin 80 Mg/0.8 Ml Syringe) 80 mg SUB-Q Q12H [facility] Last Admin: 03/15/21 20:01 Dose: 80 mg Documented by: Folic Acid (Folic Acid 1 Mg Tablet) 1 mg PO DAILY [facility] Ipratropium [place] (Ipratropium Br 0.02% Inh Soln 0.5 Mg/2.5 Ml Vial) 0.5 mg INHALATION Q6HRT [facility] Last Admin: 03/16/21 08:28 Dose: 0.5 mg Documented by: Isosorbide Mononitrate (Isosorbide Mononitrate 60 Mg Tab.Er.24h) 60 mg PO QAM [facility] Last Admin: 03/15/21 08:34 Dose: 60 mg Documented by: Lorazepam (Lorazepam Inj (*Crx) 2 Mg/Ml Vial) 1 mg IV PUSH Q3HR PRN PRN Reason: Agitation Last Admin: 03/16/21 03:39 Dose: 1 mg Documented by: Morphine Sulfate (Morphine Sulfate (*Crx) 2 Mg/Ml Inj) 1 mg IV PUSH Q3H PRN PRN Reason: CHEST PAIN NON RELVED BY NITRO Last Admin: 03/14/21 00:25 Dose: 1 mg Documented by: Nicotine (Nicotine (*Pbkc) 14 Mg Patch) 1 patch TRANSDERM QAM JOJO Last Admin: 03/15/21 08:34 Dose: 1 patch Documented by: Nitroglycerin (Nitroglycerin Sl 0.4 Mg Tablet) 0.4 mg SUBLINGUAL Q5MIN PRN PRN Reason: Chest Pain Last Admin: 03/13/21 23:56 Dose: 0.4 mg Documented by: Ondansetron HCl (Ondansetron Inj 4 Mg/2 Ml Vial) 4 mg IV PUSH Q4H PRN PRN Reason: Nausea Thiamine HCl (Thiamine Hcl 100 Mg Tablet) 100 mg PO QAM JOJO Trazodone HCl (Trazodone Hcl 50 Mg Tablet) 100 mg PO HS PRN PRN Reason: Sleep Last Admin: 03/15/21 20:04 Dose: 100 mg Documented by: Sedation/Anesthesia: No previous sedation/anesthesia problems (including family history). PMFSH Social History Social History Smoking packs per day: 1 Smoking cigarettes per day: 20.0 Years smoked: 45 Smoking pack-years: 45.00 Smoking status: Heavy tobacco smoker Tobacco type: cigarettes Alcohol intake: current Drinks per week: 5 Substance use: never Gender identity (if verbalized by the patient): Male Spiritual care concerns: No Mod Sed Physical Exam Physical Exam Pre Procedural Exam: Normal: Appearance, Nose, Neck, Throat, Airway, Heart Size, Heart Rate, Heart Rhythm, Neuro Exam and Extremities and Variation: Lungs (Breath sounds clear but diminished) Hours since solid foods: 12 Hours since liquid intake: 12 Mallampati Classification: class II Internal Medicine - PN: Obj Da Vital Signs Vital Signs: Vital Signs - 24 hr 03/15/21 09:58 03/15/21 11:40 03/15/21 12:00 Temperature 36.5 C Pulse Rate 109 H 88 95 Pulse Rate [Apical] Respiratory Rate 18 Blood Pressure 110/74 Pulse Oximetry 99 03/15/21 14:00 03/15/21 14:57 03/15/21 15:05 Temperature Pulse Rate 86 88 87 Pulse Rate [Apical] Respiratory Rate 20 18 Blood Pressure Pulse Oximetry 96 96 03/15/21 16:00 03/15/21 17:37 03/15/21 18:00 Temperature 36.9 C 36.8 C Pulse Rate 96 87 102 H Pulse Rate [Apic
[2021-03-16] MEDS: THIAMINE HCL 100 MG TABLET PO (09:27)
[2021-03-16] MEDS: ATORVASTATIN 40 MG TABLET 80 MG PO (09:27)
[2021-03-16] MEDS: ASPIRIN 81 MG CHEWABLE TABLET PO (09:27)
[2021-03-16] MEDS: ISOSORBIDE MONONITRATE 60 MG TAB.ER.24H PO (09:27)
[2021-03-16] MEDS: NICOTINE (*PBKC) 14 MG PATCH 1 PATCH TRANSDERM (09:27)
[2021-03-16] MEDS: FOLIC ACID 1 MG TABLET PO (09:27)
--- NOTE | 2021-03-16 14:49 | WPDCARDPROC ---
Cardiac Cath Procedure Note Date of procedure:: 03/16/21 Performing physician:: David Tucker MD Indication:: chest pain, troponin elevation Brief clinical history:: this is a 60-year-old man without previous known history of coronary disease. He is a heavy cigarette smoker and abuses alcohol as well as opiates and benzodiazepines. Following admission his troponin levels were slightly elevated but relatively flat. In this setting an angiogram has been recommended. By exam and by echo he appears to have moderate mitral valve regurgitation. Procedure Procedure performed:: Left heart catheterization Sedation/Medication given:: fentanyl 50 mg Versed 2 mg case start time 2:30 p.m. case end time 2:45 p.m. sedation provided by Obinna Walsh RN, trained observer Access site:: right femoral artery Estimated blood loss:: 20 cc Procedure note:: patient was brought to the cardiac catheterization lab in the post absorptive state. The right femoral triangle was prepared and draped in the usual fashion. Anesthesia was provided with 1% lidocaine infiltrated locally. Using the modified Seldinger technique 5 [place] sheath was placed into the femoral artery after this left heart catheterization was carried out. A 5 [place] angled pigtail catheter was used to measure left-sided hemodynamics and to inject LV AO projection. After this pigtail catheter was removed. The left coronary was then engaged and injected using a 5 [place] FL4 catheter. After this the right coronary was engaged and injected using a standard 5 [place] JR4 catheter. The cineangiograms were then reviewed and the case was terminated. An angiogram was done of the femoral artery through the sheath after which an Angio-Seal device was deployed with a good hemostatic result. Patient tolerated procedure well there were no apparent complications. Findings:: Hemodynamics: Central aortic pressure is 120 over 76 left ventricle 120/0 end-diastolic pressure 8 there is no systolic gradient on pullback across the aortic valve. Left ventricle: The LV is normal in size all segments contract appropriately the global ejection fraction is 55-60% without regional wall motion abnormalities. There is moderate mitral valve regurgitation identified. The mitral valve annulus is heavily calcified. The left coronary artery including the left main LAD and proximal circumflex are heavily calcified the left main coronary artery is widely patent the LAD is a moderate caliber artery extending down to the apex. The LAD despite being calcified is free of significant lesions. There is VIRAJ 3 flow down to the apex. Circumflex is a moderate caliber vessel giving rise to the marginal branches. The circumflex also despite being calcified is angiographically patent without any stenosis being identified. Right coronary artery is large in caliber and dominant to the posterior circulation the right coronary artery is only modestly calcified but is also patent without significant lesions. Conclusion:: 1. The coronary arteries which are diseased with atherosclerosis and calcified but there are no stenotic lesions as described above 2. normal left ventricular systolic function with moderate mitral regurgitation 3. Angio-Seal to right femoral artery David Tucker MD [facility]
--- NOTE | 2021-03-16 17:24 | PM.IMPN ---
Progress Note: A&P Assessment and Plan (1) Non-ST elevation [place] (NSTEMI): Code(s): I21.4 - Non-ST elevation (NSTEMI) myocardial infarction Status: Acute Assessment and Plan: Patient with chest pain, shortness of breath, diaphoresis. -no ST-T changes on EKG -troponins elevated with have plateaued and decreased now. -currently chest pain-free -he was requiring nitroglycerin infusion which has been stopped now and currently on nitro patch. Continue aspirin and therapeutic Lovenox. I will add Lipitor. He is not on any beta acacia at this time. - Cardiology recommendations appreciated. He is planned for left heart cardiac catheterization and SMILEY to evaluate mitral valve. He had echocardiogram done which showed moderate mitral valve regurgitation with myxomatous leaflet and anterior prolapse. Ejection fraction was 55-60%. 03/16/21 17:24 patient is 60-year-old male presented with chest pain is found to non STEMI with elevated however no ST changes patient is seen by Cardiology and patient had cardiac catheterization and showed coronary artery her disease with there is no stenosis and not requiring any stent, patient has a normal ejection fraction, will continue medical management and further recommendation to follow. (2) Tobacco dependence: Code(s): F17.200 - Nicotine dependence, unspecified, uncomplicated Status: Acute Assessment and Plan: Patient states he smokes 1 to 1/2 packet per day for about 45 years. He was counseled about quitting smoking. (3) Emphysema/COPD: Code(s): J43.9 - Emphysema, unspecified Status: Acute Assessment and Plan: History of emphysema/COPD as seen on chest x-ray as well as from his history. Currently not wheezing. -continue bronchodilators (4) Alcohol use: Code(s): Z72.89 - Other problems related to lifestyle Status: Acute Assessment and Plan: Patient states he has drinks about half a pintt of whiskey daily -counseled patient on cessation of alcohol use and getting him to AA or other groups. Follow for any withdrawal sign and put him on CIWA protocol if he does exhibit any withdrawal signs. He is currently on Librium but will wean the dose to 25 mg every 6 are today. Continue further wean based on his clinical status. Thiamine and folate. 03/16 patient appears quite somnolent will taper Librium to 25 mg every 8 hours as needed will continue to monitor Additional Plan DVT prophylaxis with therapeutic Lovenox GI prophylaxis not indicated. He will be NPO overnight for his cardiac catheterization and smiley. Code status: Full code Subjective Date/time seen: 03/16/21 17:24 patient is 60-year-old male presented with chest pain is found to non STEMI with elevated however no ST changes patient is seen by Cardiology and patient had cardiac catheterization and showed coronary artery her disease with there is no stenosis and not requiring any stent, patient has a normal ejection fraction, will continue medical management and further recommendation to follow. Review of Systems Review of Systems: All systems reviewed & are unremarkable except as noted in HPI and below Exam Narrative: patient appears chronically older than his age Patient is comfortable, NAD HEENT: eyes are clear and none icteric LUNGS:CTA HEART: RR S1S2 ABD: BS+, Soft and nontender Lower extremities: no edema SKIN: nonjaundiced Neuro: grossly intact. Objective Data Vital Signs Vital Signs: Vital Signs - 24 hr 03/15/21 17:37 03/15/21 18:00 03/15/21 20:00 Temperature 98.2 F 97.7 F Pulse Rate 87 102 H 77 Pulse Rate [Apical] Respiratory Rate 18 20 Blood Pressure 105/68 104/65 Pulse Oximetry 97 98 03/15/21 20:53 03/15/21 22:00 03/15/21 23:30 Temperature Pulse Rate 81 83 Pulse Rate [Apical] 80 Respiratory Rate 16 Blood Pressure Pulse Oximetry 03/15/21 23:37 03/15/21 23:39 03/16/21 00:00 Temperature 97
[2021-03-16] MEDS: ENOXAPARIN 80 MG/0.8 ML SYRINGE SUB-Q (21:41)
[2021-03-17] VITALS (22 sets, daily range): BP systolic 99–135; BP diastolic 54–85; PULSE 63–97; RESP 20–28; TEMP 35.5–36.4; O2SAT 92–100
[2021-03-17] MEDS: chlordiazePOXIDE (*CRX) 25 MG CAPSULE PO ×4 (01:10→22:42)
[2021-03-17] MEDS: ALBUTEROL SULFATE NEB 2.5 MG/0.5 ML INH 5 MG INHALATION ×4 (01:13→21:49)
[2021-03-17] MEDS: IPRATROPIUM BR 0.02% INH SOLN 0.5 MG/2.5 ML VIAL INHALATION ×4 (01:13→21:50)
[2021-03-17] MEDS: LORazepam INJ (*CRX) 2 MG/ML VIAL 1 MG IV PUSH ×3 (06:24→20:06)
--- NOTE | 2021-03-17 08:17 | PM.IMPN ---
Progress Note: A&P Assessment and Plan (1) Non-ST elevation [place] (NSTEMI): Code(s): I21.4 - Non-ST elevation (NSTEMI) myocardial infarction Status: Acute Assessment and Plan: Patient with chest pain, shortness of breath, diaphoresis. -no ST-T changes on EKG -troponins elevated with have plateaued and decreased now. -currently chest pain-free -he was requiring nitroglycerin infusion which has been stopped now and currently on nitro patch. Continue aspirin and therapeutic Lovenox. Added on Lipitor. He is not on any beta acacia at this time. - Cardiology recommendations appreciated. He is planned for left heart cardiac catheterization and ROSA to evaluate mitral valve. He had echocardiogram done which showed moderate mitral valve regurgitation with myxomatous leaflet and anterior prolapse. Ejection fraction was 55-60%. 03/16/21 17:24 patient is 60-year-old male presented with chest pain is found to non STEMI with elevated however no ST changes patient is seen by Cardiology and patient had cardiac catheterization and showed coronary artery her disease with there is no stenosis and not requiring any stent, patient has a normal ejection fraction, will continue medical management and further recommendation to follow. 03/[address]-elevation GA however no acute changes in the ST in EKG. A catheterization performed 03/16/2021 no stenosis normal ejection fraction chronically calcified vessels. Moderate mitral valve regurgitation with myxomatous leaflets and anterior prolapse on echocardiogram that needs follow-up as an outpatient basis discussed with the patient. Await Cardiology recommendation here (2) Tobacco dependence: Code(s): F17.200 - Nicotine dependence, unspecified, uncomplicated Status: Acute Assessment and Plan: Patient states he smokes 1 to 1/2 packet per day for about 45 years. He was counseled about quitting smoking. (3) Emphysema/COPD: Code(s): J43.9 - Emphysema, unspecified Status: Acute Assessment and Plan: History of emphysema/COPD as seen on chest x-ray as well as from his history. Currently not wheezing. -continue bronchodilators (4) Alcohol use: Code(s): Z72.89 - Other problems related to lifestyle Status: Acute Assessment and Plan: Patient states he has drinks about half a pintt of whiskey daily -counseled patient on cessation of alcohol use and getting him to AA or other groups. Follow for any withdrawal sign and put him on CIWA protocol if he does exhibit any withdrawal signs. He is currently on Librium but will wean the dose to 25 mg every 6 are today. Continue further wean based on his clinical status. Thiamine and folate. 03/16 patient appears quite somnolent will taper Librium to 25 mg every 8 hours as needed will continue to monitor 03/17 remains somnolent. Librium p.r.n. watch for alcohol withdrawal his last drink was on Tuesday Additional Plan DVT prophylaxis with therapeutic Lovenox GI prophylaxis not indicated. Code status: Full code Subjective Date/time seen: 03/17/21 08:17 feels shaky this morning worried as he is far away from home. He also states he has his car somewhere that he needs to get before he leaves. No chest pain or shortness of breath but feels tired. Review of Systems Review of Systems: All systems reviewed & are unremarkable except as noted in HPI and below Exam Narrative: patient appears chronically older than his age Patient is comfortable, NAD HEENT: eyes are clear and none icteric LUNGS:CTA no respiratory distress HEART: RR S1S2 systolic murmur noted ABD: BS+, Soft and nontender Lower extremities: no edema cyanosis or clubbing SKIN: nonjaundiced Neuro: grossly intact. Little drowsy but oriented x3 Objective Data Vital Signs Vital Signs: Vital Signs - 24 hr 03/16/21 08:30 03/16/21 08:44 03/16/21 10:00 Temperature Pulse Rate 67 76 76 Respiratory Rate 20 20 Bl
[2021-03-17] MEDS: ASPIRIN 81 MG CHEWABLE TABLET PO (08:55)
[2021-03-17] MEDS: ATORVASTATIN 40 MG TABLET 80 MG PO (08:55)
[2021-03-17] MEDS: FOLIC ACID 1 MG TABLET PO (08:57)
[2021-03-17] MEDS: THIAMINE HCL 100 MG TABLET PO (08:57)
[2021-03-17] MEDS: ISOSORBIDE MONONITRATE 60 MG TAB.ER.24H PO (08:57)
[2021-03-17] MEDS: ENOXAPARIN 80 MG/0.8 ML SYRINGE SUB-Q (08:57)
[2021-03-17] MEDS: NICOTINE (*PBKC) 14 MG PATCH 1 PATCH TRANSDERM (08:58)
[2021-03-17] MEDS: ACETAMINOPHEN 325 MG TABLET 650 MG PO (11:02)
--- NOTE | 2021-03-17 13:45 | PM.PNCARD ---
Progress Note: A&P Assessment and Plan (1) Tobacco dependence: Code(s): F17.200 - Nicotine dependence, unspecified, uncomplicated Status: Acute Assessment and Plan: Counseling performed (2) Alcohol use: Code(s): Z72.89 - Other problems related to lifestyle Status: Acute (3) Nonrheumatic mitral valve regurgitation: Code(s): I34.0 - Nonrheumatic mitral (valve) insufficiency Status: Acute Assessment and Plan: Moderate and will need follow-up in [place]. The patient understands and I did talk about the importance of establishing with Cardiology whenever he gets back to [place]. He once again verbalized understanding of its importance. (4) Non-ST elevation [place] (NSTEMI): Code(s): I21.4 - Non-ST elevation (NSTEMI) myocardial infarction Status: Acute Assessment and Plan: Continue aspirin, statin. Will add losartan 12.5 mg p.o. daily. (5) Emphysema/COPD: Code(s): J43.9 - Emphysema, unspecified Status: Acute Additional Plan Discontinue enoxaparin Okay for discharge from my perspective. Again the patient needs follow-up in [place]. He needs to establish with a mold carpenter once he returns to [place]. He will need maintenance evaluation of his mitral regurgitation. He verbalizes understanding and is in agreement. Subjective Date/time seen: 03/17/21 13:45 Interval history: Follow-up visit in this 60-year-old man with: Chest pain concerning for unstable myocardial ischemia. Modest flat troponin elevation. Date of service 03/17/2021: No chest pain, shortness of breath, groin pain Review of Systems Review of Systems: All systems reviewed & are unremarkable except as noted in HPI and below Constitutional: Constitutional: Denies weakness Eyes: Eyes: Denies blurry vision ENT: Reports Normal hearing present Cardiovascular: Cardiovascular: Denies chest pain Respiratory: Respiratory: Denies dyspnea Gastrointestinal: Gastrointestinal: Denies abdominal pain and Denies bloating Genitourinary: Genitourinary: Denies dysuria Musculoskeletal: Musculoskeletal: Denies neck pain Integumentary/Breasts: Skin/Breast: Denies unusual bruising Neurologic: Denies headache(s) Psychiatric: Psychiatric: Denies anxiety Endocrine: Endocrine: Denies change in body appearance and Denies excessive sweating Hematologic/Lymphatic: Hematologic/Lymphatic: Denies easy bleeding Allergic/Immunologic: Allergic/Immunologic: Denies GI upset with certain foods Exam Const: General: comfortable and no acute distress Other: Able to lie flat HENMT: General nose exam: Normal nares present and no epistaxis Mouth: Yes moist mucous membranes Eyes: Sclera: sclerae normal Pupils: Equal, round and reactive pupils present Neck: Neck: supple and no JVD Thyroid: thyroid normal Carotids: no bruits Resp: Effort & Inspection: normal respiratory effort Auscultation: clear to auscultation bilaterally and lung sounds not diminished Other: No chest wall tenderness Cardio: Rate: regular rate Rhythm: regular rhythm Heart sounds: no gallops, Murmur heart sound present (systolic murmur at M area ) systolic and no rubs Other: Grade 2/6 holosystolic murmur at the apex compatible with mitral regurgitation GI: Auscultation: normal bowel sounds Skin: General skin exam: normal color, rashes and/or lesions noted and no erythema Other: Warm: Right groin is free of hematoma ecchymosis or bruit. Neuro: Cranial nerves: Yes Equal, round and reactive pupils present Cognition (Neuro): normal cognition Speech: normal speech Other: No obvious focal deficit or facial asymmetry Extrem: General: normal to inspection and no edema Other: Normal capillary refills Intact distal pulses. Objective Data Vital Signs Vital Signs: Vital Signs - 24 hr 03/16/21 15:00 03/16/21 15:15 03/16/21 15:30 Temperature 36.0 C L Pulse Rate 69 71 69 Pulse Rate [Apical] Pulse Ra
[2021-03-17] MEDS: traZODone HCL 50 MG TABLET 100 MG PO (19:46)
[2021-03-18] VITALS: BP 132/85; PULSE 98; RESP 18; TEMP 36.9; O2SAT 96
[2021-03-18 04:00] VITALS: BP 111/64; PULSE 79; RESP 26; TEMP 36.9; O2SAT 95
[2021-03-18 04:54] LABS: Basophils Percent Auto 0.4 % (0.2-1.2); Eosinophils Absolute Auto 0.6 K/mm3 (0-0.3); Eosinophils Percent Auto 7.9 % (0-4.4); Hematocrit 30.9 % (42.0-52.0); Hemoglobin 9.8 g/dL (14.0-18.0); Immature Granulocyte Percent A 1.3 % (0-0.5); Lymphocytes Percent Auto 17.3 % (18.3-44.2); Mean Corpuscular HGB Conc 31.7 g/dl (32-36); Mean Platelet Volume 9.9 fl (7.4-10.4); Monocytes Absolute Auto 0.8 K/mm3 (0.1-0.6); Monocytes Percent Auto 10.5 % (2.6-8.5); Neutrophils Absolute Auto 4.7 K/mm3 (1.3-6.7); Neutrophils Percent Auto 62.6 % (45.5-73.1); Platelet Count Result 281 k/mm3 (150-375); Red Blood Count 3.06 M/mm3 (4.6-6.20); Red Cell Distribution Width 17.2 % (11.5-14.5); White Blood Count 7.5 K/mm3 (4.5-10.0)
[2021-03-18 05:19] LABS: Alanine Aminotransferase 30 U/L (4-50); Albumin Level 3.1 g/dL (3.5-5.1); Alkaline Phosphatase 67 U/L (38-126); Anion Gap 5 mmol/L (8-16); Aspartate Amino Transferase 44 U/L (17-59); Bilirubin,Total 0.2 mg/dL (0.2-1.3); Blood Urea Nitrogen 10 mg/dL (9-20); Calcium 8.6 mg/dL (8.4-10.2); Carbon Dioxide 29 mmol/L (22-30); Chloride 102 mmol/L (98-107); Estimated CRCL calculation 90 ml/min; Estimated Glomerular Filt Rate > 60; Glucose 129 mg/dL (65-110); Sodium 136 mmol/L (137-145)
[2021-03-18 07:50] VITALS: BP 123/74; PULSE 81; RESP 16; TEMP 36.6; O2SAT 97
[2021-03-18 08:41] VITALS: PULSE 87; RESP 20
[2021-03-18] MEDS: ALBUTEROL SULFATE NEB 2.5 MG/0.5 ML INH 5 MG INHALATION (08:41)
[2021-03-18] MEDS: IPRATROPIUM BR 0.02% INH SOLN 0.5 MG/2.5 ML VIAL INHALATION (08:41)
[2021-03-18 08:44] VITALS: PULSE 87; O2SAT 93
[2021-03-18 08:52] VITALS: PULSE 85; RESP 20
[2021-03-18] MEDS: FOLIC ACID 1 MG TABLET PO (08:56)
[2021-03-18] MEDS: LOSARTAN POTASSIUM 12.5 MG TABLET PO (08:56)
[2021-03-18] MEDS: ATORVASTATIN 40 MG TABLET 80 MG PO (08:56)
[2021-03-18] MEDS: ASPIRIN 81 MG CHEWABLE TABLET PO (08:57)
[2021-03-18] MEDS: THIAMINE HCL 100 MG TABLET PO (08:57)
[2021-03-18] MEDS: ISOSORBIDE MONONITRATE 30 MG TAB.ER.24H PO (08:57)
[2021-03-18] MEDS: NICOTINE (*PBKC) 14 MG PATCH 1 PATCH TRANSDERM (08:57)
--- NOTE | 2021-03-18 10:43 | PM.DS ---
DS: Admitting Diagnosis Admitting Diagnosis chest pain DS: Discharge Diagnosis Discharge Diagnosis (1) Alcohol withdrawal: Code(s): F10.239 - Alcohol dependence with withdrawal, unspecified Status: Acute Assessment and Plan: on librium. slow taper as op basis. improving CIWA score. (2) Nonrheumatic mitral valve regurgitation: Code(s): I34.0 - Nonrheumatic mitral (valve) insufficiency Status: Acute Assessment and Plan: moderate mitral regurgitation on echo and on cath (3) Alcohol use: Code(s): Z72.89 - Other problems related to lifestyle Status: Acute Assessment and Plan: Patient states he has drinks about half a pintt of whiskey daily -counseled patient on cessation of alcohol use and getting him to AA or other groups. Follow for any withdrawal sign and put him on CIWA protocol if he does exhibit any withdrawal signs. He was started on Librium and started on wean as tolerated. he states he takes valium at home as needed. last refill frm PDMP was in 05/2020. will taper librium at discharge and have him follow up with his PCP for furher evaluation. continue thiamine and folate. (4) Tobacco dependence: Code(s): F17.200 - Nicotine dependence, unspecified, uncomplicated Status: Acute Assessment and Plan: Patient states he smokes 1 to 1/2 packet per day for about 45 years. He was counseled about quitting smoking. (5) Emphysema/COPD: Code(s): J43.9 - Emphysema, unspecified Status: Acute Assessment and Plan: History of emphysema/COPD as seen on chest x-ray as well as from his history. Currently not wheezing. CXR with chornic pleural findings. he will need follow up with PCP -continue bronchodilators (6) Non-ST elevation [place] (NSTEMI): Code(s): I21.4 - Non-ST elevation (NSTEMI) myocardial infarction Status: Acute Assessment and Plan: Patient with chest pain, shortness of breath, diaphoresis. -no ST-T changes on EKG -troponins elevated with have plateaued and decreased now. -currently chest pain-free -he was requiring nitroglycerin infusion which has been stopped now and currently on nitro patch. Continue aspirin and therapeutic Lovenox. Added on Lipitor. He is not on any beta acacia at this time. - Cardiology recommendations appreciated. He is planned for left heart cardiac catheterization and ROSA to evaluate mitral valve. He had echocardiogram done which showed moderate mitral valve regurgitation with myxomatous leaflet and anterior prolapse. Ejection fraction was 55-60%. cardiac catheterization performed 03/16/2021 no stenosis normal ejection fraction chronically calcified vessels. on aspirin, statin, imdur and arb at discharge which is new. needs follow up with cardiology as op basis. DS: Summary Hospital Course Hospital Course: see above Time Spent with Patient Time attestation: Total time spent providing and/or coordinating discharge services:45 mins Exam Narrative: patient appears chronically older than his age Patient is comfortable, NAD HEENT: eyes are clear and none icteric LUNGS:CTA no respiratory distress HEART: RR S1S2 systolic murmur noted ABD: BS+, Soft and nontender Lower extremities: no edema cyanosis or clubbing SKIN: nonjaundiced Neuro: grossly intact. Little drowsy but oriented x3 DS: Data Data Completed and Pending Labs on day of discharge: Labs from last 24 hours 03/18/21 03/18/21 04:31 04:31 WBC 7.5 RBC 3.06 L Hgb 9.8 L Hct 30.9 L MCV 101.0 H MCH 32.0 MCHC 31.7 L RDW 17.2 H Plt Count 281 MPV 9.9 Immature Gran % (Auto) 1.3 H Neut % (Auto) 62.6 Lymph % (Auto) 17.3 L [place] % (Auto) 10.5 H Eos % (Auto) 7.9 H Baso % (Auto) 0.4 Lymph # (Auto) 1.30 [place] # (Auto) 0.8 H Eos # (Auto) 0.6 H Baso # (Auto) 0.0 Abs Immat Gran (auto) 0.10 H Absolute Neuts (auto) 4.7 Absolute Nucleated RBC 0.0 Nucleated RBC
--- NOTE | 2021-03-18 11:02 | PM.PNCARD ---
Progress Note: A&P Assessment and Plan (1) Tobacco dependence: Code(s): F17.200 - Nicotine dependence, unspecified, uncomplicated Status: Acute Assessment and Plan: Counseling performed (2) Alcohol use: Code(s): Z72.89 - Other problems related to lifestyle Status: Acute (3) Nonrheumatic mitral valve regurgitation: Code(s): I34.0 - Nonrheumatic mitral (valve) insufficiency Status: Acute Assessment and Plan: Moderate and will need follow-up in [place]. The patient understands and I did talk about the importance of establishing with Cardiology whenever he gets back to [place]. He once again verbalized understanding of its importance. (4) Non-ST elevation [place] (NSTEMI): Code(s): I21.4 - Non-ST elevation (NSTEMI) myocardial infarction Status: Acute Assessment and Plan: Continue current regimen (5) Emphysema/COPD: Code(s): J43.9 - Emphysema, unspecified Status: Acute Additional Plan Okay for discharge from my perspective. Again the patient needs follow-up in [place]. He needs to establish with a insole tacker once he returns to [place]. He will need maintenance evaluation of his mitral regurgitation. He verbalizes understanding and is in agreement. Subjective Date/time seen: 03/18/21 11:02 Interval history: Follow-up visit in this 60-year-old man with: Chest pain concerning for unstable myocardial ischemia. Modest flat troponin elevation. Date of service 03/17/2021: No chest pain, shortness of breath, groin pain Date of service 03/18/2021: Continue feels okay. No chest pain, shortness breath, syncope. He has no groin pain Review of Systems Review of Systems: All systems reviewed & are unremarkable except as noted in HPI and below Constitutional: Constitutional: Denies excessive sweating, Denies headache(s) and Denies weakness Eyes: Eyes: Denies blurry vision ENT: Reports Normal hearing present, Denies headache(s) and Denies neck pain Cardiovascular: Cardiovascular: Denies chest pain and Denies dyspnea Respiratory: Respiratory: Denies dyspnea Gastrointestinal: Gastrointestinal: Denies abdominal pain and Denies bloating Genitourinary: Genitourinary: Denies dysuria Musculoskeletal: Musculoskeletal: Denies neck pain Integumentary/Breasts: Skin/Breast: Denies unusual bruising Neurologic: Reports Normal hearing present, Denies headache(s) and Denies weakness Psychiatric: Psychiatric: Denies anxiety Endocrine: Endocrine: Denies change in body appearance and Denies excessive sweating Hematologic/Lymphatic: Hematologic/Lymphatic: Denies easy bleeding Allergic/Immunologic: Allergic/Immunologic: Denies GI upset with certain foods Exam Const: General: comfortable and no acute distress Other: Able to lie flat HENMT: General nose exam: Normal nares present and no epistaxis Mouth: Yes moist mucous membranes Eyes: Sclera: sclerae normal Neck: Neck: supple and no JVD Thyroid: thyroid normal Carotids: no bruits Resp: Effort & Inspection: normal respiratory effort Auscultation: clear to auscultation bilaterally and lung sounds not diminished Other: No chest wall tenderness Cardio: Rate: regular rate Rhythm: regular rhythm Heart sounds: no gallops, Murmur heart sound present (systolic murmur at M area ) systolic and no rubs Other: Grade 2/6 holosystolic murmur at the apex compatible with mitral regurgitation GI: Auscultation: normal bowel sounds Skin: General skin exam: normal color, rashes and/or lesions noted and no erythema Other: Warm: Neuro: Cranial nerves: Yes Normal hearing present Cognition (Neuro): normal cognition Speech: normal speech Other: No obvious focal deficit or facial asymmetry Extrem: General: normal to inspection and no edema Other: Normal capillary refills Intact distal pulses. Objective Data Vital Signs Vital Signs: Vital Signs - 24 hr 03/17/21 12:00 03/17/21 12:12
--- NOTE | 2021-03-18 12:19 | PC.NURSE ---
Discharge instructions discussed with pt; prescriptions printed and cardiac cath card given to pt- instructed pt importance of taking medications and to carry card in wallet - pt acknowledged understanding. pt given a voucher for cab to take him to [facility] -in [place]- to his car; also tokens given to pt for bus ride to [place] and a bus schedule-;
== END 2021-03-18 12:30 | disposition home or self-care (01) | DRG 281 ==
LOC: ANHED 21:26 → ANHICU 03-14 14:42 → ANHIMU 03-16 09:10 → ANHICU 03-19 15:10 → ANHIMU 03-19 15:10
PROVIDERS: Internal Medicine Cardiovascular Disease; Internal Medicine Critical Care Medicine; Specialist; Admitting Provider Internal Medicine; Emergency Provider Emergency Medicine; Visit Provider Internal Medicine
PROC: 4A023N7 Measurement of Cardiac Sampling and Pressure, Left Heart, Percutaneous Approach (ICD-10-PCS; CPT 93452; principal; 2021-03-16 13:00)
PROC: 4A023N7 Measurement of Cardiac Sampling and Pressure, Left Heart, Percutaneous Approach (ICD-10-PCS; 2021-03-16 13:00)
DX: I21.4 Non-ST elevation (NSTEMI) myocardial infarction (principal); F10.239 Alcohol dependence with withdrawal, unspecified; I25.10 Atherosclerotic heart disease of native coronary artery without angina pectoris; I34.0 Nonrheumatic mitral (valve) insufficiency; F17.210 Nicotine dependence, cigarettes, uncomplicated; J43.9 Emphysema, unspecified
CPT/HCPCS: 36415; 71046; 80048; 80053; 80307; 83880; 84484; 85025; 85610; 85730; 93005; 93458; 94640; 99291; A9270; C1760; C1887; C1894; C8929; G0269; J1644; J1650; J2060; J2250; J2270; J3010; J7040; J7120; L1830; Q9957